=== PATIENT | male | born 1960 | race Caucasian/White ===

== ENCOUNTER 2021-01-14 01:51 | Emergency (ER) | payer BC ==
[2021-01-14] MEDS ORDERED: Glucagon,Human Recombinant 1 MG Vial SUBCUT ONE (02:09)
--- NOTE | 2021-01-14 03:37 | EDM.PDOC ---
ED HPI GENERAL MEDICAL PROBLEM - General Chief Complaint: ENT Problem Stated Complaint: FOOD STUCK IN THROAT Time Seen by Provider: 01/14/21 02:15 - History of Present Illness INITIAL COMMENTS - FREE TEXT/NARRATIVE: Patient states he was eating steak last evening for his meal when he felt something become stuck in the upper portion of the chest. He tried drinking Coke but this did not really fix anything. He states that the sensation has moved down and is now on the lower chest. The patient has no problems with shortness of breath, coughing, or breathing issues he has no pain. ED ROS ENT - Review of Systems Review Of Systems: Comprehensive ROS is negative, except as noted in HPI. HEENT: Reports: Other (FB in lower esophagus.) ED EXAM, ENT - Physical Exam Exam: See Below Text/Narrative:: Objective General appearance patient is awake and alert no obvious distress. vital signs are reviewed as listed physical exam oral mucous membranes are moist there is no sign of foreign body in the posterior pharynx area. Lungs are clear with good air exchange all the lung yost. Cardiac heart sound distinct without murmurs. Skin is warm and dry. Course - Vital Signs Text/Narrative:: Patient was given glucagon 1 mg subcu. We monitored him for 1 hour and his symptoms did not seem to change. He try drinking a couple of small sips of water and it still felt lodged like it was before in the lower esophageal area. The patient is not coughing and there are no issues with shortness of breath. - Orders/Labs/Meds Meds: Medications Discontinued Medications Generic Name Dose Route Start Last Admin Trade Name Shiloq PRN Reason Stop Dose Admin Glucagon 1 mg 01/14/21 02:09 Glucagon,Human Recombinant 1 Mg Vial SUBCUT 01/14/21 02:10 ONETIME ONE Departure - Departure Time of Disposition: 03:30 Disposition: Home, Self-Care 01 Condition: Good Clinical Impression: Esophageal foreign body Qualifiers: Encounter type: initial encounter Qualified Code(s): T18.108A - Unspecified foreign body in esophagus causing other injury, initial encounter - Discharge Information *PRESCRIPTION DRUG MONITORING PROGRAM REVIEWED*: Not Applicable *COPY OF PRESCRIPTION DRUG MONITORING REPORT IN PATIENT MARK ANTHONY: Not Applicable Additional Instructions: I had a conversation with the patient about surgically having the foreign body removed. The patient feels like he wants to go home which is in [facility]. Advised the patient that he should consider stopping in [facility] on the way through if his symptoms are not improving for a recheck and needs tells me he will consider it if his symptoms get worse. The patient is encouraged not to eat or drink anything until he has this addressed or the symptoms resolve. He agrees that if his symptoms are not improving he will stop in [place] or stop at the local hospital when he gets home in a couple of hours. He is traveling with other people. End of dictation
== END 2021-01-14 03:33 | disposition home or self-care (01) ==
LOC: LB.ED 01:51
DX: T18.128A Food in esophagus causing other injury, initial encounter (principal)
CPT/HCPCS: 96372; 99283; J1610